=== PATIENT | female | born 2005 | race Caucasian/White ===

== ENCOUNTER → 2023-05-27 09:39 | Outpatient (CLI) | payer OTHER, SELFPAY ==
[2023-05-27 15:39] LABS: Urine N gonorrhoeae NOT DETECTED
[2023-05-27 15:40] LABS: Urine Chlamydia NOT DETECTED
== END ==
PROVIDERS: PCP Family Medicine; Visit Provider Physician Assistant Medical
DX: Z11.3 Encounter for screening for infections with a predominantly sexual mode of transmission (principal); R10.2 Pelvic and perineal pain; N89.8 Other specified noninflammatory disorders of vagina
CPT/HCPCS: 87070; 87077; 87147; 87205; 87491; 87591

== ENCOUNTER 2023-08-12 11:16 | Day surgery (SDC) | payer OTHER, SELFPAY ==
[2023-08-11 10:44] VITALS: BMI 20.2
[2023-08-12] MEDS: SCOPOLAMINE 1 PATCH TOP (11:30)
[2023-08-12] MEDS: LACTATED RINGERS 1,000 ML 42 ML IV ×2 (11:30→13:09)
[2023-08-12] MEDS: ONDANSETRON 4 MG/2 ML INJ IV (11:56)
[2023-08-12 11:58] VITALS: BP 108/71; PULSE 72; RESP 16; TEMP 36.3; O2SAT 100; BMI 20.2
--- NOTE | 2023-08-12 12:55 | P.HPOB_ITS ---
History of Present Illness History of Present Illness Reason for admission: pelvic pain Narrative: Loretta Joseph is a 17 year old female who presents for a diagnostic laparoscopy due to persistent pelvic pain. Family history of endometriosis. If endometriosis discovered we will treat at the same time. FOR[facility]LY [facility] Medical History (Updated 08/04/23 @ 13:21 by Jaylene Saleh MD) Anxiety and depression Heavy menstrual period Irritable bowel syndrome Surgical History (Updated 06/24/23 @ 21:54 by Christiana Nascimento) Anesthesia [place] teeth removed (~08/2019) History of colonoscopy (~04/2022) History of endoscopy (~04/2022) Family History (Updated 06/24/23 @ 21:58 by Christiana Nascimento) Father Hypertension Hyperlipidemia Mother Mental health problem Anxiety Brother Anxiety Grandfather History of heart disease Hypertension Mental health problem Grandfather Cancer Hyperlipidemia Hypertension Stroke Grandmother Hyperlipidemia Hypertension Mental health problem Dementia Social History household members: family Smoking Status: Never smoker alcohol intake: current Meds Home Medications and Allergies Home Medications Medication Instructions Recorded Confirmed Type desogestrel 0.15 mg-ethinyl 1 tab PO DAILY 05/27/23 08/12/23 History estradiol 0.03 mg tablet escitalopram oxalate 20 mg tablet 20 mg PO DAILY 05/27/23 08/12/23 History hydroxyzine HCl 10 mg tablet 25 mg PO TID 05/27/23 08/12/23 History hyoscyamine sulfate 0.125 mg tablet 0.125 mg PO BID-QID PRN abd pain 05/27/23 08/12/23 History omeprazole 20 mg capsule,delayed 20 mg PO DAILY 05/27/23 08/12/23 History release Allergies Allergy/AdvReac Type Severity Reaction Status Date / Time No Known Drug Allergies Allergy Verified 08/12/23 11:35 Exam Vital Signs (past 8 hours): - 08/12/23 11:58 Temperature 97.4 F L Pulse Rate 72 Respiratory Rate 16 Blood Pressure 108/71 Pulse Oximetry 100 Oxygen Delivery Method Room Air Oxygen Delivery Method Room Air Narrative Exam Narrative: HEENT: No thyromegaly, no anterior cervical or supraclavicular lymphadenopathy. Lungs:Clear to auscultation bilaterally, no wheezes. Cardiovascular: Regular rate and rhythm, no murmurs, rubs, or gallops. Abdomen: No scars. No hepatosplenomegaly. No masses palpable. External genitalia: Normal Vagina: Normal Cervix: Normal, nulliparous Bimanual exam: [6 Week size uterus. Mobile.] Bilateral uterosacral tenderness. No adnexal masses appreciated. Extremities: No edema Assessment & Plan Assessment & Plan narrative: Assessment: 17-year-old 0 with persistent pelvic pain Family history of endometriosis Plan: Diagnostic laparoscopy with possible excision versus fulguration of endometriosis The risks, benefits, and alternatives to the procedure were explained to the patient. The risks including bleeding, infection, injury to the bowel, bladder, or ureters. She understands these risks and agrees to proceed. A full par Q was held and consent form was signed.
--- NOTE | 2023-08-12 13:01 | PM.PREOP ---
Pre-operative Note Interval Note History & Physical reviewed/Exam performed by Physician: Yes Changes to H&P: No H&P completed within 30 days and has changed as indicated here:: 08/12/23
[2023-08-12] MEDS: ACETAMINOPHEN IV 1,000 MG/100 ML VIAL 400 MG IV (13:35)
--- NOTE | 2023-08-12 13:55 | SUR.OPER ---
Lithotomy on padded OR bed, head on pillow, arms secured on padded arm boards at <90 degrees abduction. Legs secured in padded yellow fins stirrups.
[2023-08-12] MEDS: BUPIVACAINE 0.5% (PF) 30 ML, EPINEPHrine 0.15 MG INJ (13:57)
[2023-08-12 14:20] VITALS: BP 137/76; PULSE 82; RESP 22; TEMP 36.2; O2SAT 98
--- NOTE | 2023-08-12 14:21 | PM.GYNOP.1 ---
Operative Date/Time/Diagnoses Date of procedure: 08/12/23 Time of procedure: 14:21 Pre-op diagnosis: Pelvic pain Post-op diagnosis: same Procedure & Clinicians Procedure: Procedures Operation Date: 08/12/23 12:30 Actual Procedure Side Surgeon p Diagnostic laparoscopy DOCUMENT MANAGEMENT CONSULTANT Jaylene Saleh MD Indications: 17-year-old 0 with persistent pelvic pain and a strong family history of endometriosis Surgeon: Jaylene Saleh Anesthesia Type: General and Local Operative Notes Findings: 6 week size anteverted uterus Small amount of clear free fluid in the posterior cul-de-sac No evidence of endometriosis in the anterior or posterior cul-de-sac, on the ovaries or tubes bilaterally, or in the ovarian fossa No evidence of endometriosis on the bowel or bladder Normal appendix Normal liver and gallbladder Closure Type: primary Specimen(s): none Applied: catheter (In/out) Estimated blood loss (mL): 3 Blood products transfused: none Procedure in detail: After informed consent was obtained, the patient was taken to the operating room where she was placed in the dorsal supine position. After adequate general endotracheal anesthesia was achieved, she was placed in the dorsal lithotomy position, and prepped and draped in the usual sterile fashion. A time-out was performed. A bivalve speculum was placed into the vagina and the anterior lip of the cervix was grasped with a single-tooth tenaculum. The cervical os was sequentially dilated until the Zumi uterine manipulator could pass easily into the endometrial cavity. The single-tooth tenaculum was removed from the anterior lip of the cervix. The bivalve speculum was removed from the vagina. Attention was then turned to the abdomen where 6 cc of 0.5% Marcaine with epinephrine were injected in the umbilical fold. A 5 mm incision was made. The Veress needle was placed into the peritoneal cavity, and its placement confirmed by aspiration and drop test. The abdominal cavity was insufflated width 3 L of CO2. The Veress needle was removed, and a 5 mm trocar was placed without difficulty. A second incision was made 4 cm left lateral to the umbilicus after 6 cc of 0.5% Marcaine with epinephrine were injected. A second 5 mm trocar was placed under direct visualization. The probe was placed through the left lateral incision. The pelvis and abdomen were examined with findings noted above. There was no evidence of endometriosis in the anterior and posterior cul-de-sacs, bilateral ovarian fossa, on the tubes or ovaries, or on the bladder or bowel. The appendix was normal. The liver and gallbladder were normal. The instruments were removed from the abdomen. The CO2 was allowed to escape. The incisions were repaired with 4-0 Monocryl in a subcuticular fashion. Steri-Strips and Allevyn dressings were placed. The Zumi uterine manipulator was removed from the uterus. Sponge, lap, and instrument counts were correct x2. The patient tolerated the procedure well, was taken to PACU in stable condition. Complications: none Post-operative Condition: stable Disposition: PACU Plan for aftercare: Home after recovery
[2023-08-12 14:25] VITALS: BP 122/75; PULSE 80; RESP 14; O2SAT 100
[2023-08-12 14:30] VITALS: BP 122/70; PULSE 85; RESP 14; O2SAT 98
[2023-08-12] MEDS: OXYCODONE IR 5 MG TABLET PO (14:39)
[2023-08-12 14:44] VITALS: BP 99/55; PULSE 56; RESP 14; O2SAT 100
== END 2023-08-12 15:12 | disposition home or self-care (01) ==
PROVIDERS: PCP Obstetrics & Gynecology; Referring Provider Obstetrics & Gynecology; Visit Provider Obstetrics & Gynecology
PROC: 0U5B4ZZ Destruction of Endometrium, Percutaneous Endoscopic Approach (ICD-10-PCS; CPT 58662; principal; 2023-08-12 12:30)
DX: R10.2 Pelvic and perineal pain (principal)
CPT/HCPCS: 49320; 81025; J0136; J0171; J1100; J2250; J2405; J2704; J3010; J3490